=== PATIENT | female | born 1945 | race Caucasian/White ===

== ENCOUNTER 2019-05-10 09:49 | Emergency (ER) | payer OTHER ==
[~2019-05-10] VITALS: Ht 167.6 cm; Wt 69.8 kg
[2019-05-10 10:02] VITALS: BP 164/82
[2019-05-15] MEDS ORDERED: PRAVACHOL20 MG PO (11:06)
[2019-05-15] MEDS ORDERED: VITAMIN D1000 UNI1 PO (11:06)
== END 2019-05-10 11:00 | disposition home or self-care (01) ==
LOC: ER 09:49
DX: S01.81XA Laceration without foreign body of other part of head, initial encounter (principal); Z23 Encounter for immunization; W22.8XXA Striking against or struck by other objects, initial encounter; Y93.89 Activity, other specified; Y92.098 Other place in other non-institutional residence as the place of occurrence of the external cause; Y99.8 Other external cause status

== ENCOUNTER 2021-12-14 14:11 | Emergency (ER) | payer OTHER ==
[~2021-12-14] VITALS: Ht 165.1 cm; Wt 63.5 kg
[~2021-12-14 14:11] MED LIST: PRAVACHOL20 MG PO; VITAMIN D1000 UNI1 PO
[2021-12-14 14:47] VITALS: BP 150/79
== END 2021-12-14 16:00 | disposition home or self-care (01) ==
LOC: ER 14:11
DX: R04.0 Epistaxis (principal); G35 Multiple sclerosis; Z79.899 Other long term (current) drug therapy; Z88.0 Allergy status to penicillin

== ENCOUNTER 2021-12-14 17:18 | Emergency (ER) | payer OTHER ==
[~2021-12-14] VITALS: Ht 165.1 cm; Wt 63.5 kg
[2021-12-14 17:18] VITALS: BP 168/93
== END 2021-12-14 19:39 | disposition home or self-care (01) ==
LOC: ER 17:18
DX: R04.0 Epistaxis (principal); G35 Multiple sclerosis; Z79.899 Other long term (current) drug therapy; Z88.0 Allergy status to penicillin